=== PATIENT | male | born 1965 | race Caucasian/White ===

== ENCOUNTER 2019-02-11 14:22 | Emergency (ER) | payer OTHER ==
[~2019-02-11] VITALS: Ht 188 cm; Wt 112.5 kg
[2019-02-11 15:41] VITALS: BP 150/89
== END 2019-02-11 16:18 | disposition home or self-care (01) ==
LOC: ER 14:30
DX: K04.7 Periapical abscess without sinus (principal); E11.9 Type 2 diabetes mellitus without complications; Z76.0 Encounter for issue of repeat prescription